=== PATIENT | male | born 1965 | race African-American/Black ===

== ENCOUNTER 2025-05-29 18:34 | Emergency (ER) | payer OTHER, SELFPAY ==
[2025-05-29 18:49] VITALS: BP 141/92; PULSE 89; RESP 18; TEMP 36.7; O2SAT 100
--- NOTE | 2025-05-29 18:51 | ED_ITS ---
HPI - Nausea/Vomiting/Diarrhea General Chief complaint: Nausea/Vomiting/Diarrhea Stated complaint: Diarrhea Time Seen by Provider: 05/29/25 18:40 Source: patient Mode of arrival: ambulatory Limitations: no limitations History of Present Illness HPI Narrative: Patient is a 59-year-old male who presents with 4 days of diarrhea. Patient states over the weekend he had significant amounts of alcohol along with more a lcohol on Saturday. The diarrhea started the next day. Patient had some abdominal cramping at the start of symptoms but no longer occurring. Reports roughly 4 or 5 episodes of diarrhea today. Denies any blood in stool. Denies any nausea or vomiting, fever, chills. Has been able eat and drink. Related Data Home Medications ?Medication ?Instructions ?Recorded ?Confirmed ?Last Taken ?Type amlodipine 5 mg tablet mg 05/29/25 Unknown History Allergies Allergy/AdvReac Type Severity Reaction Status Date / Time No Known Allergies Allergy Verified 05/29/25 19:18 Review of Systems Review of Systems: All systems reviewed & are unremarkable except as noted in HPI and below Constitutional: Constitutional: Denies body ache(s), Denies chills, Denies fatigue, Denies fever(s), Denies headache(s), Denies malaise and Denies weakness Eyes: Eyes: Denies blurry vision, Denies irritation and Denies loss of vision ENT: Denies otalgia, Denies headache(s), Denies nasal discharge, Denies sinus pain and Denies sore throat Cardiovascular: Cardiovascular: Denies chest pain, Denies irregular heart rhythm and Denies dyspnea Respiratory: Respiratory: Denies dyspnea Gastrointestinal: Gastrointestinal: Denies abdominal pain, Denies melena, Denies hematochezia, Reports diarrhea, Denies nausea and Denies vomiting Musculoskeletal: Musculoskeletal: Denies back pain, Denies myalgias and Denies arthralgias Integumentary/Breasts: Skin/Breast: Denies pruritus and Denies rash Neurologic: Denies headache(s), Denies loss of vision and Denies weakness Psychiatric: Psychiatric: Reports no additional psychiatric complaints Endocrine: Endocrine: Denies fatigue PMFSH Comments At time of signature, agree with nursing past medical, surgical, social and family history. There is no relevant family history pertinent to the presenting complaint. Exam Const: General: cooperative, healthy appearing, comfortable, no acute distress and well nourished Nutritional Appearance: well nourished Orientation/consciousness: patient oriented x3 Limitations: no limitations HENMT: Head: normal to inspection, normocephalic and atraumatic Ears: hearing grossly normal bilaterally and external ears normal Face/Nose/Sinus: Normal external nose present, normal facial exam and face symmetric Face and sinus: normal facial exam and face symmetric Mouth: Yes lip normal Eyes: General: appearance normal, both eyes and all related structures Alignment and Position: alignment normal and position normal Periorbital: periorbital findings normal Eyelids: eyelids normal Pupils: Equal, round and reactive pupils present EOM: EOMs intact bilaterally Neck: Neck: normal visual inspection, full ROM and supple Chest: Chest palpation & inspection: normal inspection of the chest Resp: Effort & Inspection: normal respiratory effort and able to speak in complete sentences Auscultation: clear to auscultation bilaterally Cardio: Rate: regular rate Rhythm: regular rhythm Heart sounds: S1 normal heart sound present and S2 normal heart sound present GI: Inspection: normal to inspection GI Palp: No abdominal tenderness, Yes Soft to palpation, No Tenderness to palpation present (GI) and No Guarding due to palpation present (GI) Auscultation: normal bowel sounds Skin: General skin exam: normal color and no rashes or lesions noted Neuro: General: patient oriented x3 and moves all extremities Cranial nerves: Yes Equal, round and reactive pupils present Speech: normal speech Gait exam (Neuro): Normal gait present Extrem: General: normal to inspection, full ROM and no edema Psych: Appearance: grossly normal and well kempt Mental Status: mental status grossly normal Speech and movement: Normal speech and movement present Affect: normal affect Attitude: cooperative Thought process: Normal thought process present Course Course Emergency Course: Patient is aware of diagnosis, understands and agrees to treatment plan. Anticipatory guidance given. Patient agrees to follow-up as directed and is aware of reasons to seek care at the emergency department. Portions of this record may have been created with voice recognition software Level of Care: Express Care Visit Vital Signs Vital signs: Vital Signs Temperature 36.7 C 05/29/25 18:49 Pulse Rate 89 05/29/25 18:49 Respiratory Rate 18 05/29/25 18:49 Blood Pressure 141/92 H 05/29/25 18:49 Pulse Oximetry 100 05/29/25 18:49 Oxygen Delivery Room Air 05/29/25 18:49 Temperature 36.7 C 05/29/25 18:49 Pulse Rate 89 05/29/25 18:49 Respiratory Rate 18 05/29/25 18:49 Blood Pressure 141/92 H 05/29/25 18:49 Pulse Oximetry 100 05/29/25 18:49 Oxygen Delivery Room Air 05/29/25 18:49 Reviewed MDM - Nausea/Vomiting/Diarrhea MDM Narrative Medical decision making narrative: Discussed patient's diet may be the cause of some diarrhea as he is still continuing to eat acidic food, fried food. Recommended [id number] Imodium and provided appropriate foods to limit diarrhea. Pt well hydrated appearing, in no respiratory distress, hemodynamically stable. Recommend supportive care. The patient is stable at time of discharge the clinical impression was discussed and the patient was given the opportunity to ask questions, which were addressed as completely as possible given the information available at present. Anticipatory guidance and return to care precautions were discussed and the importance of primary care follow-up was stressed and encouraged. The patient voiced understanding of the plan, indications to return, and the need for follow-up. Exam findings show no acute concerns or changes Patient is appropriate for outpatient treatment and follow-up. Differential Diagnosis Differential diagnosis: Likely traveler's diarrhea, food poisoning, gastroenteritis and clostridium difficile infection Discharge Plan Discharge Clinical Impression: Gastroenteritis Patient Disposition: Home Condition: Stable Instructions: Gastroenteritis (ED), Nutrition Tips for Relief of Diarrhea (ED) Additional Instructions: Take up to 4 tablets of Imodium a day. Stay hydrated. Take small sips of fluid containing electrolytes frequently(Body [place], Gatorade, Powerade, liquid IV). Eat small meals that her very bland including bananas, applesauce, rice, toast, boiled or grilled chicken, soup. Do not eat anything fried, spicy or overly acidic. You should go to the hospital if you experience return of persistent nausea and vomiting that does not resolve and does not allow you to tolerate any food or fluids, persistent fevers for greater than 2-3 more days, increasing abdominal pain that persists despite medications, persistent diarrhea, dizziness, syncope (fainting), or for any other concerns. Your blood pressure was elevated above 120/80 today at Urgent Care. This puts you above the threshold for follow up visit with a primary care provider. High blood pressure does not usually cause any symptoms, however it may lead to kidney failure, stroke, heart disease just to name a few if untreated . Many people are anxious when seeing a provider or nurse. As a result, you are not diagnosed with hypertension at this time unless your blood pressure is persis tently high at two office visits at least one week apart. Some things that can help lower blood pressure are lifestyle modifications, such as light exercise, decreased salt in diet, and weight loss. It is important to follow up with a PCP about this within 1 week. Patient Language: Polish Follow-up/Referrals: Polish,Guiod Thapa MD [Primary Care Provider] - 3 Days Time of Disposition: 19:22
== END 2025-05-29 19:30 | disposition home or self-care (01) ==
PROVIDERS: Emergency Provider Nurse Practitioner Family; PCP Internal Medicine
DX: K52.9 Noninfective gastroenteritis and colitis, unspecified (principal); I10 Essential (primary) hypertension
CPT/HCPCS: 99202; G0463